=== PATIENT | female | born 1955 | race Caucasian/White ===

== ENCOUNTER 2019-02-15 06:08 | Day surgery (SDC) | payer OTHER ==
[2019-02-13 12:34] VITALS: BMI 21.2
[2019-02-15] MEDS ORDERED: EPINEPHrine 1:1,000 1 MG/1 ML - 30ML VIAL (INJECTION) ONE (07:10)
[2019-02-15] MEDS ORDERED: SUCCINYLCHOLINE CHLORIDE 200 MG/10 ML SYRINGE ONE (07:17)
[2019-02-15] MEDS ORDERED: PROPOFOL 20 ML ONE ×3 (07:17→07:43)
[2019-02-15] MEDS ORDERED: ROPIVACAINE HCL 0.5% 30ML VIAL ONE (07:18)
[2019-02-15] MEDS ORDERED: MIDAZOLAM HCL 2 MG/2 ML SINGLE DOSE VIAL ONE (07:18)
[2019-02-15] MEDS ORDERED: ONDANSETRON 4 MG/2 ML VIAL ONE ×2 (07:19→08:50)
[2019-02-15] MEDS ORDERED: LIDOCAINE HCL/PF 2% SDV 5ML VIAL ONE (07:19)
[2019-02-15] MEDS ORDERED: SODIUM CHLORIDE 0.9% P/F 10 ML VIAL IJ ONE (07:19)
[2019-02-15] MEDS ORDERED: DEXAMETHASONE SOD PHOSPHATE 4 MG/1 ML VIAL ONE (07:19)
[2019-02-15] MEDS ORDERED: KETOROLAC TROMETHAMINE 30 MG/1 ML VIAL ONE (07:19)
[2019-02-15] MEDS ORDERED: ceFAZolin SODIUM 1 GM VIAL ONE (07:19)
[2019-02-15] MEDS ORDERED: ONDANSETRON 4 MG/2 ML VIAL IVPUSH PRN (09:23)
[2019-02-15] MEDS ORDERED: oxyCODONE HCL 5 MG TABLET PO PRN ×2 (09:23)
[2019-02-15] MEDS ORDERED: LACTATED RINGERS SOLUTION 1,000 ML IV SCH (09:30)
[2019-02-15] MEDS ORDERED: oxyCODONE HCL 5 MG TABLET ONE (10:19)
--- NOTE | 2019-02-15 10:45 | OP ---
DATE OF OPERATION: 02/15/2019 Done at [facility] SURGEON: Paradise Weeks MD LOCATION AND MEASUREMENT TECHNICIAN: JUSTINE Cruz PREOPERATIVE DIAGNOSES: 1. Left shoulder adhesive capsulitis. 2. Left shoulder impingement disease. 3. Left shoulder acromioclavicular joint disease. 4. Left shoulder superior labral tear, anterior and posterior synovitis. POSTOPERATIVE DIAGNOSES: 1. Left shoulder adhesive capsulitis. 2. Left shoulder impingement disease. 3. Left shoulder acromioclavicular joint disease. 4. Left shoulder superior labral tear, anterior and posterior synovitis. PROCEDURE: 1. Left shoulder arthroscopy with lysis and resection of adhesions, CPT code 43945. 2. Left shoulder arthroscopy with subacromial decompression, CPT code 58314. 3. Left shoulder arthroscopy with resection of distal clavicle acromioclavicular joint, CPT code 63447. 4. Left shoulder arthroscopy with debridement, CPT code 19345. FINDINGS: 1. Manipulation under anesthesia to 90 degrees elevation, 45 external, 45 internal. Post manipulation 180 elevation, 85 external rotation, 85 internal rotation. 2. The glenohumeral synovitis with adhesions of the scar tissue diffusely across the synovium. 3. Biceps partial tear 10%. 4. Posterior labral fraying. 5. Type 3 acromion with anterior spur. 6. Inferior spurs to clavicle, acromioclavicular joint disease. 7. Thickened subacromial space with adhesions to scar tissue. 8. Partial rotator cuff tear 20% anterior supraspinatus. PROCEDURE: Informed consent was obtained. The patient was taken to the operating room, where the upper extremity was prepped and draped in a sterile fashion. A scalene block was performed by Anesthesia. Manipulation under anesthesia was allowed for full range of motion. Using standard arthroscopic technique, a posterior incision portal was made, which allowed for introduction of a camera into the glenohumeral joint. Under direct visualization, an anterior incision and portal was made. Extensive and thickened synovitis was debrided. Fraying of the labrum was debrided and the superior labrum from anterior to posterior was identified with all loose areas debrided. Any labral tears were taken to a stable rim including identified SLAP lesions. All loose cartilage was debrided. The rotator cuff was identified and evaluated, as were the subacromial and bursal surfaces. The posterior incision portal was redirected to the subacromial space, where a lateral incision and portal was made. Excessive and thickened synovium was removed throughout the subacromial space including the anterior scar tissue, posterior bursa and lateral bursa. The type 2 acromion was converted to a flattened type 1, removing the anterior and lateral spurring. An accessory portal was made at the acromioclavicular joint, removing the inferior spur of the distal clavicle at the acromioclavicular joint allowing for a distal clavicle partial resection. Please note that 1cm of undersurface of clavicle was removed extending into the intra articular portion and through an accessory portal. The shoulder was once again reexamined and all impingement was removed. The shoulder was drained. A single suture was placed in all portals and a sterile dressing was placed. The patient was transferred to the recovery room without complication. The PA listed above was present and assisted at surgery. Their presence was absolutely medically necessary for the completion of the procedure. They helped hold the arthroscopy, pass instruments (and implants when indicated) and the procedure could not have been completed without their assistance. PARADISE WEEKS M.D. [id number]
[2019-02-15 11:43] VITALS: TEMP 97.6
[2019-02-15 11:47] VITALS: BP 107/69; PULSE 86
--- NOTE | 2019-02-20 18:00 | PATH ---
Surgical Pathology Report Patient Name: NEGRITO BHATTI Med. Rec. #: [id number] /Age/Gender: 1955 (Age: 63) / F Account: [id number] Location: [facility] AMBULATORY Taken: 02/15/2019 Received: 02/15/2019 Reported: 02/20/2019 Physicians: Bhanu Bowers M.D. Specimen(s) Received SHAVINGS LEFT SHOULDER Clinical History Bursitis left shoulder Final Diagnosis LEFT SHOULDER SHAVINGS: FRAGMENTS OF FIBROSYNOVIAL TISSUE WITH FOCAL HEMORRHAGE AND FIBROSIS. SEPARATE SKELETAL MUSCLE WITH NO SIGNIFICANT PATHOLOGIC CHANGE. Electronically Signed Elyse Caban M.D. Gross Description Received in formalin, labeled "left shoulder shavings," is a 4.0 x 3.5 x 0.3 cm. aggregate of portillo-yellow soft tissue fragments. A disability representative portion is submitted in one cassette. /02/18/201902/18/2019
== END 2019-02-15 11:25 | disposition home or self-care (01) ==
LOC: FASU 06:08
PROVIDERS: ATTEND Orthopaedic Surgery
PROC: 0RBK4ZZ Excision of Left Shoulder Joint, Percutaneous Endoscopic Approach (ICD-10-PCS; 2019-02-15)
PROC: 0PBB4ZZ Excision of Left Clavicle, Percutaneous Endoscopic Approach (ICD-10-PCS; principal; 2019-02-15 08:08)
DX: M75.02 Adhesive capsulitis of left shoulder (principal); M75.42 Impingement syndrome of left shoulder; M19.012 Primary osteoarthritis, left shoulder; M24.112 Other articular cartilage disorders, left shoulder; M65.812 Other synovitis and tenosynovitis, left shoulder
CPT/HCPCS: 88304-TC; 94760